=== PATIENT | female | born 1940 | race Caucasian/White ===

== ENCOUNTER 2018-08-07 11:55 | Inpatient (IN) | payer MEDICARE, OTHER ==
[~2018-08-07] VITALS: Ht 157.5 cm; Wt 98.8 kg
[2018-08-07] MEDS ORDERED: SODIUM CHLORIDE FLUSH 10ML SYR IVF ONE (13:00)
[2018-08-07] MEDS ORDERED: AMPICILLIN/SULBACTAM 3 GM in SODIUM CHLORIDE 0.9% 100 ML IVPB ONE (13:00)
[2018-08-07] MEDS ORDERED: HYDROcodone/APAP 5/325 TABLET PO ONE (14:00)
[2018-08-07] MEDS ORDERED: HYDROcodone/APAP 5/325 TABLET ONE (14:01)
[2018-08-07 14:33] LABS: INTERNATIONAL NORMALIZED RATIO 1.11 (0.93-1.1); PROTHROMBIN TIME 11.4 Seconds (9.6-11.5)
[2018-08-07 14:37] LABS: ALANINE AMINOTRANSFERASE 37 U/L (12-78); ANION GAP 10 mmol/L (5-15); CALCIUM 8.9 mg/dL (8.5-10.1); CHLORIDE 105 mmol/L (98-107)
[2018-08-07 14:48] LABS: ALKALINE PHOSPHATASE 104 U/L (45-117); BILIRUBIN,TOTAL 0.6 mg/dL (0.2-1.0); CREATININE 0.53 mg/dL (0.55-1.02); TOTAL PROTEIN 7.9 g/dL (6.4-8.2)
[2018-08-07 15:47] LABS: MEAN CORPUSCULAR HEMOGLOBIN 31.8 pg (27.0-34.8); MEAN CORPUSCULAR HGB CONC 32.9 g/dL (32.4-35.8); MEAN CORPUSCULAR VOLUME 96.6 fL (80-100); MEAN PLATELET VOLUME 8.6 fL (7.4-10.4); PLATELET COUNT 78 x10^3/uL (130-400); RED CELL DISTRIBUTION WIDTH 14.6 % (9.6-15.2)
[2018-08-07 15:48] LABS: MD YES
[2018-08-07 15:59] LABS: <RBC MORPHOLOGY> NORMAL; BAND#(MANUAL) 0.04 x10^3/uL; BANDS%(MANUAL) 1 % (0-7); BASOS#(MANUAL) 0.04 x10^3/uL (0-0.1); BASOS% (MANUAL) 1 % (0-1); LYMPH#(MANUAL) 0.96 x10^3/uL (1-3.4); LYMPHS% (MANUAL) 24 % (22-44); MONOS#(MANUAL) 0.16 x10^3/uL (0.3-2.7); MONOS% (MANUAL) 4 % (2-9); SEGS% (MANUAL) 70 % (42-75)
[2018-08-07 16:00] LABS: <PLATELET ESTIMATE> DECREASED; <PLT MORPHOLOGY> NORMAL PLT MORPH
[2018-08-07] MEDS ORDERED: SODIUM CHLORIDE FLUSH 10ML SYR IVF PRN (16:30)
[2018-08-07] MEDS ORDERED: hydrALAzine 20 MG/ML, 1ML IVPush PRN (17:00)
[2018-08-07] MEDS ORDERED: ONDANSETRON ODT 4 MG PO PRN (17:00)
[2018-08-07] MEDS ORDERED: ONDANSETRON 2MG/ML, 2ML IVPush PRN (17:00)
[2018-08-07] MEDS ORDERED: LABETALOL 5MG/ML, 20ML IVPush PRN (17:00)
[2018-08-07 17:57] LABS: ANION GAP 5 mmol/L (5-15); CALCIUM 8.9 mg/dL (8.5-10.1); CHLORIDE 107 mmol/L (98-107)
[2018-08-07 18:01] LABS: TROPONIN I 0.021 ng/mL (0.000-0.045)
[2018-08-07 18:23] VITALS: BP 105/61
[2018-08-07 18:39] LABS: HEMOGLOBIN A1C 5.7 % (4.2-6.3)
[2018-08-07 19:58] VITALS: BP 134/72
[2018-08-07] MEDS: DOXYCYCLINE 100MG TABLET PO SCH (20:04)
[2018-08-07] MEDS: AMPICILLIN/SULBACTAM 3 GM in SODIUM CHLORIDE 0.9% 100 ML IV SCH ×2 (20:04→23:11)
[2018-08-07] MEDS: FUROSEMIDE 20 MG/2 ML IV SCH (20:04)
[2018-08-07] MEDS: ACETAMINOPHEN 325 MG TABLET PO PRN (20:05)
[2018-08-07 20:22] VITALS: BP 105/61
[2018-08-07 23:11] VITALS: BP 105/61
[2018-08-07 23:52] LABS: TROPONIN I 0.025 ng/mL (0.000-0.045)
[2018-08-08 00:54] VITALS: BP 142/78
[2018-08-08] MEDS: AMPICILLIN/SULBACTAM 3 GM in SODIUM CHLORIDE 0.9% 100 ML IV SCH ×3 (05:32→20:19)
[2018-08-08 06:09] LABS: MEAN CORPUSCULAR HEMOGLOBIN 32.4 pg (27.0-34.8); MEAN CORPUSCULAR HGB CONC 33.2 g/dL (32.4-35.8); MEAN CORPUSCULAR VOLUME 97.7 fL (80-100); MEAN PLATELET VOLUME 8.5 fL (7.4-10.4); PLATELET COUNT 71 x10^3/uL (130-400); RED BLOOD COUNT 3.62 x10^6/uL (3.82-5.3); RED CELL DISTRIBUTION WIDTH 14.9 % (9.6-15.2)
[2018-08-08 06:31] LABS: BASOPHILS # (AUTO) 0.01 x10^3/uL (0-0.1); BASOPHILS % (AUTO) 0 % (0-1); EOSINOPHILS % (AUTO) 0 % (1-7); LYMPHOCYTES # (AUTO) 0.76 x10^3/uL (1-3.4); LYMPHOCYTES % (AUTO) 21 % (22-44); MD SCAN; MONOCYTES # (AUTO) 0.37 x10^3/uL (0.2-0.8); MONOCYTES % (AUTO) 10 % (2-9); NEUTROPHILS % (AUTO) 69 % (42-75)
[2018-08-08 07:18] VITALS: BP 107/53
[2018-08-08] MEDS: ACETAMINOPHEN 325 MG TABLET PO PRN ×2 (08:37→13:28)
[2018-08-08] MEDS: FUROSEMIDE 20 MG/2 ML IV SCH ×2 (08:37→17:04)
[2018-08-08] MEDS: DOXYCYCLINE 100MG TABLET PO SCH ×2 (08:38→20:23)
[2018-08-08] MEDS ORDERED: MAGNESIUM SULFATE PMX 2GM/50ML 50 ML IV ONE (10:00)
[2018-08-08 14:22] VITALS: BP 114/66
[2018-08-08] MEDS ORDERED: METF10007 PO (17:36)
[2018-08-08] MEDS ORDERED: MELA5TAB22 PO (17:41)
[2018-08-08] MEDS ORDERED: CARB200C PO (17:41)
[2018-08-08] MEDS ORDERED: OMEP-110 PO (17:41)
[2018-08-08] MEDS ORDERED: TRAM50TA2 PO (17:41)
[2018-08-08] MEDS ORDERED: POTA10TA11 PO (17:41)
[2018-08-08] MEDS ORDERED: MELATONIN 5 MG TABLET PO PRN (18:00)
[2018-08-08 18:52] VITALS: BP 128/43
[2018-08-08] MEDS: CARBAMAZEPINE 200 MG TABLET PO SCH (20:19)
[2018-08-08] MEDS: metFORMIN 500 MG TABLET PO SCH (20:23)
[2018-08-09 01:45] VITALS: BP 112/72
[2018-08-09] MEDS: AMPICILLIN/SULBACTAM 3 GM in SODIUM CHLORIDE 0.9% 100 ML IV SCH ×4 (02:21→20:38)
[2018-08-09] MEDS: OMEPRAZOLE 20 MG CAPSULE.DR PO SCH (07:42)
[2018-08-09] MEDS: CARBAMAZEPINE 200 MG TABLET PO SCH ×2 (07:42→20:38)
[2018-08-09] MEDS: metFORMIN 500 MG TABLET PO SCH ×2 (07:42→17:43)
[2018-08-09] MEDS: DOXYCYCLINE 100MG TABLET PO SCH ×2 (07:43→20:38)
[2018-08-09] MEDS: FUROSEMIDE 20 MG/2 ML IV SCH ×2 (07:43→17:43)
[2018-08-09 08:36] VITALS: BP 130/75
[2018-08-09 14:10] VITALS: BP 106/63
[2018-08-09 20:44] VITALS: BP 124/73
[2018-08-10] MEDS: AMPICILLIN/SULBACTAM 3 GM in SODIUM CHLORIDE 0.9% 100 ML IV SCH ×2 (01:50→07:30)
[2018-08-10 02:51] VITALS: BP 136/82
[2018-08-10 06:54] VITALS: BP 123/73
[2018-08-10] MEDS: AMOXICILLIN/CLAV 875-125MG TABLET PO SCH ×2 (09:41→21:06)
[2018-08-10] MEDS: OMEPRAZOLE 20 MG CAPSULE.DR PO SCH (09:43)
[2018-08-10] MEDS: metFORMIN 500 MG TABLET PO SCH ×2 (09:44→16:29)
[2018-08-10] MEDS: DOXYCYCLINE 100MG TABLET PO SCH ×2 (09:45→21:00)
[2018-08-10] MEDS: FUROSEMIDE 20 MG TABLET PO SCH ×2 (09:46→16:30)
[2018-08-10] MEDS: CARBAMAZEPINE 200 MG TABLET PO SCH ×2 (09:46→21:07)
[2018-08-10 10:10] LABS: MEAN CORPUSCULAR HEMOGLOBIN 32.8 pg (27.0-34.8); MEAN CORPUSCULAR HGB CONC 33.9 g/dL (32.4-35.8); MEAN CORPUSCULAR VOLUME 96.7 fL (80-100); MEAN PLATELET VOLUME 8.3 fL (7.4-10.4); PLATELET COUNT 70 x10^3/uL (130-400); RED BLOOD COUNT 3.53 x10^6/uL (3.82-5.3); RED CELL DISTRIBUTION WIDTH 14.5 % (9.6-15.2)
[2018-08-10 10:17] LABS: ANION GAP 4 mmol/L (5-15); CALCIUM 8.1 mg/dL (8.5-10.1); CHLORIDE 103 mmol/L (98-107); CREATININE 0.57 mg/dL (0.55-1.02)
[2018-08-10 10:44] LABS: BASOPHILS # (AUTO) 0.01 x10^3/uL (0-0.1); BASOPHILS % (AUTO) 0 % (0-1); EOSINOPHILS % (AUTO) 0 % (1-7); LYMPHOCYTES # (AUTO) 0.57 x10^3/uL (1-3.4); LYMPHOCYTES % (AUTO) 20 % (22-44); MD SCAN; MONOCYTES # (AUTO) 0.26 x10^3/uL (0.2-0.8); MONOCYTES % (AUTO) 9 % (2-9); NEUTROPHILS # (AUTO) 2.01 x10^3/uL (1.8-6.8); NEUTROPHILS % (AUTO) 71 % (42-75)
[2018-08-10 12:50] VITALS: BP 124/76
[2018-08-10 18:56] VITALS: BP 113/72
[2018-08-11 01:26] VITALS: BP 110/65
[2018-08-11] MEDS: OMEPRAZOLE 20 MG CAPSULE.DR PO SCH (06:33)
[2018-08-11 07:41] VITALS: BP 118/68
[2018-08-11] MEDS: AMOXICILLIN/CLAV 875-125MG TABLET PO SCH (08:47)
[2018-08-11] MEDS: DOXYCYCLINE 100MG TABLET PO SCH (08:48)
[2018-08-11] MEDS: metFORMIN 500 MG TABLET PO SCH ×2 (08:49→16:46)
[2018-08-11] MEDS: CARBAMAZEPINE 200 MG TABLET PO SCH (08:49)
[2018-08-11] MEDS: FUROSEMIDE 20 MG TABLET PO SCH ×2 (08:51→16:47)
[2018-08-11] MEDS ORDERED: CARBAMAZEPINE 200 MG TABLET PO SCH (10:00)
[2018-08-11] MEDS ORDERED: metFORMIN 500 MG TABLET PO SCH (10:00)
[2018-08-11] MEDS ORDERED: POTASSIUM CHLORIDE 20 MEQ TAB.ER.PRT PO SCH (10:00)
[2018-08-11] MEDS ORDERED: OMEPRAZOLE 20 MG CAPSULE.DR PO SCH (10:00)
[2018-08-11] MEDS ORDERED: DOXY100T PO (11:14)
[2018-08-11] MEDS ORDERED: AMOX1TAB12 PO (11:14)
[2018-08-11 12:41] VITALS: BP 122/74
[2018-08-11] MEDS ORDERED: MELATONIN 5 MG TABLET PO SCH (21:00)
== END 2018-08-11 18:33 | DRG 602 ==
LOC: ED 13:09 → EDIP 16:06 → 4EST 17:58
PROVIDERS: ADMIT Internal Medicine; ATTEND Internal Medicine
DX: L03.115 Cellulitis of right lower limb (principal); I50.33 Acute on chronic diastolic (congestive) heart failure; J96.20 Acute and chronic respiratory failure, unspecified whether with hypoxia or hypercapnia; L03.116 Cellulitis of left lower limb; J44.9 Chronic obstructive pulmonary disease, unspecified; E66.01 Morbid (severe) obesity due to excess calories; W18.39XA Other fall on same level, initial encounter; I89.0 Lymphedema, not elsewhere classified; R33.9 Retention of urine, unspecified; E11.9 Type 2 diabetes mellitus without complications; Y93.89 Activity, other specified; Y92.89 Other specified places as the place of occurrence of the external cause; Y99.8 Other external cause status
CPT/HCPCS: 36415; 71045; 71250; 80048; 80053; 83036; 83605; 83735; 83880; 84100; 84443; 84484; 85025; 85610; 87040; 93005; 93306; 96374; 99285; G0378; J0295; J1940; J3475